=== PATIENT | female | born 1935 | race Two or more races ===

== ENCOUNTER → 2016-08-23 | Outpatient (CLI) | payer OTHER ==
[2016-08-23 09:18] LABS: Basophils # (auto) 0 uL; Basophils % (auto) 0.3 % (0.0-2.0); Eosinophils # (auto) 0.2 uL; Eosinophils % (auto) 3.3 % (0.0-7.0); Hematocrit 41.6 % (36.0-46.0); Hemoglobin 13.7 g/dL (12.2-16.2); Lymphocytes # (auto) 2.4 uL; Lymphocytes % (auto) 38.6 % (10.0-50.0); Mean Corpuscular Hemoglobin 30.1 pg (28.0-32.0); Mean Corpuscular Volume 91.1 fL (80.0-100.0); Mean Platelet Volume 8.9 fL (7.4-10.4); Monocytes # (auto) 0.5 uL; Monocytes % (auto) 8.1 % (0.0-12.0); Neutrophils # (auto) 3.1 uL; Neutrophils % (auto) 49.7 % (37.0-80.0); Platelet Count (auto) 300 10^3/uL (140-450); Red Cell Distribution Width 13.5 % (11.6-16.0); White Blood Cell 6.3 10^3/uL (4.4-10.8)
[2016-08-23 09:56] LABS: Albumin 3.6 g/dL (3.4-5.0); Bilirubin, Total 0.5 mg/dL (0.2-1.0); Calcium 9.5 mg/dL (8.5-10.1); Potassium 4.3 mmol/L (3.5-5.1); Total Protein 7.5 g/dL (6.4-8.2)
[2016-08-23 09:59] LABS: INR 0.97 (0.9-1.15); Partial Thromboplastin Time 23.6 sec (22.64-33.71); Prothrombin Time 10.5 sec (9.37-12.3)
[2016-08-23 10:38] LABS: Urine Bilirubin Negative (Negative); Urine Blood Negative /uL (Negative); Urine Color Yellow (Yellow); Urine Glucose Normal (Normal); Urine Ketone Negative (Negative); Urine Mucus FEW (None Seen); Urine Nitrite Negative (Negative); Urine RBC 2 /hpf (0 - 4); Urine Squamous Epithelial Cell FEW /hpf (<5); Urine Urobilinogen Normal (Negative)
== END | disposition home or self-care (01) ==
LOC: LAB 08:08
DX: H25.12 Age-related nuclear cataract, left eye (principal)
CPT/HCPCS: 36415; 80053; 81001; 85025; 85610; 85730

== ENCOUNTER → 2016-09-26 | Outpatient (CLI) | payer OTHER ==
[2016-09-26 08:08] LABS: Basophils # (auto) 0 uL; Basophils % (auto) 0.4 % (0.0-2.0); Eosinophils # (auto) 0.2 uL; Eosinophils % (auto) 3.6 % (0.0-7.0); Hematocrit 41.4 % (36.0-46.0); Hemoglobin 13.9 g/dL (12.2-16.2); Lymphocytes # (auto) 2.3 uL; Lymphocytes % (auto) 36.4 % (10.0-50.0); Mean Corpuscular Hemoglobin 30.6 pg (28.0-32.0); Mean Corpuscular Hgb Conc. 33.6 g/dL (32.0-36.0); Mean Corpuscular Volume 91.1 fL (80.0-100.0); Mean Platelet Volume 8.2 fL (7.4-10.4); Monocytes # (auto) 0.4 uL; Monocytes % (auto) 6.3 % (0.0-12.0); Neutrophils # (auto) 3.3 uL; Neutrophils % (auto) 53.3 % (37.0-80.0); Platelet Count (auto) 291 10^3/uL (140-450); Urine Bilirubin Negative (Negative); Urine Blood Negative /uL (Negative); Urine Color Yellow (Yellow); Urine Glucose Normal (Normal); Urine Ketone Negative (Negative); Urine Nitrite Negative (Negative); Urine Urobilinogen Normal (Negative); Urine pH 6.5 (5.0-8.0); White Blood Cell 6.2 10^3/uL (4.4-10.8)
[2016-09-26 08:23] LABS: INR 0.94 (0.9-1.15); Partial Thromboplastin Time 23.9 sec (22.64-33.71); Prothrombin Time 10.2 sec (9.37-12.3)
[2016-09-26 08:33] LABS: Albumin 3.6 g/dL (3.4-5.0); BUN/Creatinine Ratio 17.3; Bilirubin, Total 0.4 mg/dL (0.2-1.0); Calcium 8.7 mg/dL (8.5-10.1); Potassium 4.2 mmol/L (3.5-5.1); Total Protein 7.5 g/dL (6.4-8.2)
== END | disposition home or self-care (01) ==
LOC: LAB 07:30
DX: H26.9 Unspecified cataract (principal)
CPT/HCPCS: 36415; 80053; 81003; 85025; 85610; 85730

== ENCOUNTER 2022-09-25 09:10 | Emergency (ER) | payer OTHER ==
[~2022-09-25] VITALS: Ht 157.5 cm; Wt 61.8 kg
[2022-09-25 11:21] VITALS: BP 150/100
[2022-09-25] MEDS ORDERED: LACTULOSE 20Gm/30ML SOLN PO ONE (11:30)
[2022-09-25] MEDS ORDERED: MAGN400S25 PO (12:10)
[2022-09-25] MEDS ORDERED: SODIENE35 RE (12:10)
[2022-09-25] MEDS ORDERED: FLEET ENEMA(ADULT) 135 ML PR ONE (12:15)
== END 2022-09-25 13:17 | disposition home or self-care (01) ==
LOC: ER 09:10
DX: K59.00 Constipation, unspecified (principal)
CPT/HCPCS: 74018

== ENCOUNTER 2022-09-26 13:59 | Inpatient (IN) | payer OTHER, MEDICAID ==
[~2022-09-26] VITALS: Ht 157.5 cm; Wt 58.5 kg
[~2022-09-26 13:59] MED LIST: MAGN400S25 PO; SODIENE35 RE
[2022-09-26] MEDS ORDERED: SODIUM CHLORIDE 0.9% 500 ML IV ONE (16:00)
[2022-09-26 16:38] LABS: Albumin 3.8 g/dL (3.4-5.0); Calcium 9.5 mg/dL (8.5-10.1); Potassium 4.2 mmol/L (3.5-5.1)
[2022-09-26 16:42] LABS: BUN/Creatinine Ratio 29.4 (10.0-20.0); Bilirubin, Total 0.8 mg/dL (0.2-1.0); Total Protein 8.1 g/dL (6.4-8.2)
[2022-09-26 17:10] LABS: Basophils # (auto) 0 10 ^3/uL (0-0.2); Basophils % (auto) 0.1 % (0.0-2.0); Eosinophils # (auto) 0 10 ^3/uL (0-0.8); Hematocrit 46.4 % (36.0-46.0); Hemoglobin 15.6 g/dL (12.2-16.2); Lymphocytes # (auto) 0.8 10 ^3/uL (0.4-5.4); Lymphocytes % (auto) 8.9 % (10.0-50.0); Mean Corpuscular Hemoglobin 30.1 pg (28.0-32.0); Mean Corpuscular Hgb Conc. 33.5 g/dL (32.0-36.0); Mean Corpuscular Volume 89.8 fL (80.0-100.0); Monocytes # (auto) 0.4 10 ^3/uL (0-1.3); Monocytes % (auto) 4.9 % (0.0-12.0); Neutrophils # (auto) 7.5 10 ^3/uL (1.6-8.6); Neutrophils % (auto) 86.1 % (37.0-80.0); Nucleated Red Blood Cells % 0.1 %; Red Blood Cells 5.17 10^6/uL (4.0-5.20); White Blood Cell 8.7 10^3/uL (4.4-10.8)
[2022-09-26 17:33] LABS: Urine Bacteria FEW /hpf (None Seen); Urine Blood Negative /uL (Negative); Urine Mucus FEW (None Seen); Urine Specific Gravity 1.035 (1.001-1.035); Urine WBC 26 /hpf (0 - 5)
[2022-09-26] MEDS ORDERED: cefTRIAXone 1GM/50ML D5W 50 ML IV ONE (18:30)
[2022-09-26] MEDS ORDERED: ONDANSETRON HCL 4 MG/2 ML VIAL IV PRN (21:15)
[2022-09-26] MEDS: SODIUM CHLORIDE 0.9% 1,000 ML IV SCH (21:15)
[2022-09-26] MEDS ORDERED: MORPHINE SULFATE INJ 2 MG/ml SYRG IV PRN (21:15)
[2022-09-26 21:32] LABS: INR 0.98 (0.9-1.15); Partial Thromboplastin Time 25.1 sec (24.6-33.4)
[2022-09-27 05:53] LABS: Basophils # (auto) 0 10 ^3/uL (0-0.2); Eosinophils # (auto) 0 10 ^3/uL (0-0.8); Hematocrit 40.9 % (36.0-46.0); Hemoglobin 13.9 g/dL (12.2-16.2); Lymphocytes % (auto) 15.5 % (10.0-50.0); Mean Corpuscular Hemoglobin 30.5 pg (28.0-32.0); Mean Corpuscular Hgb Conc. 33.9 g/dL (32.0-36.0); Mean Corpuscular Volume 89.9 fL (80.0-100.0); Monocytes # (auto) 0.6 10 ^3/uL (0-1.3); Monocytes % (auto) 10.1 % (0.0-12.0); Neutrophils # (auto) 4.7 10 ^3/uL (1.6-8.6); Neutrophils % (auto) 74.4 % (37.0-80.0); Nucleated Red Blood Cells % 0.1 %; Red Blood Cells 4.55 10^6/uL (4.0-5.20); Red Cell Distribution Width 14.1 % (11.8-14.3); White Blood Cell 6.3 10^3/uL (4.4-10.8)
[2022-09-27 06:05] LABS: Albumin 3.3 g/dL (3.4-5.0); Calcium 8.7 mg/dL (8.5-10.1); Potassium 3.6 mmol/L (3.5-5.1)
[2022-09-27 06:09] LABS: BUN/Creatinine Ratio 43.8 (10.0-20.0); Bilirubin, Total 0.7 mg/dL (0.2-1.0); Total Protein 6.6 g/dL (6.4-8.2)
[2022-09-27] MEDS ORDERED: cefTRIAXone 1GM/50ML D5W 50 ML IV SCH (09:00)
[2022-09-27] MEDS ORDERED: GASTROGRAFIN 120 ML SOL ONE (09:20)
[2022-09-27] MEDS: PANTOPRAZOLE 40 MG/10 ML VIAL INJ IV SCH (12:35)
[2022-09-27] MEDS: SODIUM CHLORIDE 0.9% 1,000 ML IV SCH ×2 (12:52→22:15)
[2022-09-27 13:00] VITALS: BP 154/84
[2022-09-27 17:00] VITALS: BP 162/89
[2022-09-27] MEDS: PIPERACILLIN-TAZOB 3.375GM 100 ML IV SCH (21:43)
[2022-09-27 22:00] VITALS: BP 142/84
[2022-09-28] VITALS (36 sets, daily range): BP systolic 62–175; BP diastolic 36–97
[2022-09-28] MEDS: PIPERACILLIN-TAZOB 3.375GM 100 ML IV SCH ×3 (05:31→21:45)
[2022-09-28 06:31] LABS: Basophils # (auto) 0 10 ^3/uL (0-0.2); Basophils % (auto) 0.1 % (0.0-2.0); Eosinophils # (auto) 0 10 ^3/uL (0-0.8); Hematocrit 40.7 % (36.0-46.0); Hemoglobin 13.8 g/dL (12.2-16.2); Lymphocytes % (auto) 14.3 % (10.0-50.0); Mean Corpuscular Hemoglobin 30.6 pg (28.0-32.0); Mean Corpuscular Hgb Conc. 33.8 g/dL (32.0-36.0); Mean Corpuscular Volume 90.5 fL (80.0-100.0); Monocytes # (auto) 0.7 10 ^3/uL (0-1.3); Monocytes % (auto) 9.5 % (0.0-12.0); Neutrophils # (auto) 5.5 10 ^3/uL (1.6-8.6); Neutrophils % (auto) 76.1 % (37.0-80.0); Nucleated Red Blood Cells % 0.2 %; Red Cell Distribution Width 13.7 % (11.8-14.3); White Blood Cell 7.2 10^3/uL (4.4-10.8)
[2022-09-28 07:03] LABS: BUN/Creatinine Ratio 45.3 (10.0-20.0); Calcium 9.3 mg/dL (8.5-10.1); Potassium 4.2 mmol/L (3.5-5.1)
[2022-09-28 07:12] LABS: Bilirubin, Total 0.7 mg/dL (0.2-1.0); Total Protein 6.1 g/dL (6.4-8.2)
[2022-09-28] MEDS: PANTOPRAZOLE 40 MG/10 ML VIAL INJ IV SCH (10:41)
[2022-09-28] MEDS: SODIUM CHLORIDE 0.9% 1,000 ML IV SCH (10:45)
[2022-09-28] MEDS ORDERED: ceFAZolin 1GM/50ML 50 ML IV ONE (13:18)
[2022-09-28] MEDS ORDERED: METRONIDAZOLE 500 MG/100 ML IV ONE (13:19)
[2022-09-28] MEDS ORDERED: HYDROmorphone HCL 2 MG/ML VL/or syr ONE (13:34)
[2022-09-28] MEDS ORDERED: MIDAZOLAM HCL 2MG/2ML 2ml VIAL (1mg/ml) ONE ×2 (13:36→14:12)
[2022-09-28] MEDS ORDERED: fentaNYL CITRATE 100 MCG/2 ML VL ONE ×3 (13:36→14:15)
[2022-09-28] MEDS ORDERED: DexAMETHasone SOD PHOS 10MG/1ML VIAL INJ ONE (13:57)
[2022-09-28] MEDS ORDERED: ETOMIDATE (2MG/ML) 20ML VIAL IV ONE (13:59)
[2022-09-28] MEDS ORDERED: CALCIUM CHL(10%) 100MG/ML 10ML VIAL IV ONE (14:03)
[2022-09-28] MEDS ORDERED: NOREPINEPHRINE 8 MG/250ML KIT 250 ML IV ONE (14:22)
[2022-09-28] MEDS ORDERED: BACITRACIN TOP OINT 1 UD PKG TOP ONE (14:41)
[2022-09-28] MEDS ORDERED: POVIDONE IODINE 10 % TOPICAL OINT 30GM TOP ONE (14:42)
[2022-09-28] MEDS ORDERED: SODIUM CHLORIDE 0.9% 1,000 ML IV SCH (15:00)
[2022-09-28] MEDS: NOREPINEPHRINE 8 MG/250ML KIT 250 ML IV SCH ×2 (15:00→18:39)
[2022-09-28] MEDS: MIDAZOLAM DRIP 50 mg/50mL 50 ML IV SCH (15:00)
[2022-09-28] MEDS ORDERED: MIDAZOLAM DRIP 50 mg/50mL 50 ML IV ONE (15:28)
[2022-09-28] MEDS ORDERED: LIDOCAINE 1% (LOCAL ANESTH.) PF 5ml SDV ID ONE (18:30)
[2022-09-28] MEDS: D5W/SOD CHL 0.45%/KCL 20MEQ 1,000 ML IV SCH (18:42)
[2022-09-28] MEDS ORDERED: CLINIMIX PER PHARMACY 0 ML IV SCH (19:30)
[2022-09-28] MEDS: fentaNYL Drip 2500mCg/250mlNS 250 ML IV SCH (19:46)
[2022-09-28] MEDS: SODIUM CHLOR 0.9% PF (SALINE LOCK) 10ML VIAL/SYR IV SCH (21:46)
[2022-09-28] MEDS ORDERED: AMINO ACID INFUSION IN D10W 1,000 ML IV NR (22:00)
[2022-09-28] MEDS: ACCU-CHEK COMFORT CURVE STRIP VI SCH (23:33)
[2022-09-28] MEDS: InsuLIN REG 1unit/0.01ml Soln (100units/ml) SC SCH (23:49)
[2022-09-29] VITALS (99 sets, daily range): BP systolic 77–170; BP diastolic 42–145
[2022-09-29] MEDS ORDERED: DEXTROSE (50%) 50ML SYRG IV SCH
[2022-09-29] MEDS: D5W/SOD CHL 0.45%/KCL 20MEQ 1,000 ML IV SCH (02:55)
[2022-09-29 04:35] LABS: Basophils # (auto) 0 10 ^3/uL (0-0.2); Basophils % (auto) 0.1 % (0.0-2.0); Eosinophils # (auto) 0 10 ^3/uL (0-0.8); Hematocrit 38.7 % (36.0-46.0); Hemoglobin 13.2 g/dL (12.2-16.2); Lymphocytes # (auto) 0.7 10 ^3/uL (0.4-5.4); Lymphocytes % (auto) 7.2 % (10.0-50.0); Mean Corpuscular Hemoglobin 30.5 pg (28.0-32.0); Mean Corpuscular Volume 89.6 fL (80.0-100.0); Monocytes # (auto) 0.5 10 ^3/uL (0-1.3); Monocytes % (auto) 5.3 % (0.0-12.0); Neutrophils # (auto) 8.8 10 ^3/uL (1.6-8.6); Neutrophils % (auto) 87.4 % (37.0-80.0); Red Blood Cells 4.32 10^6/uL (4.0-5.20); Red Cell Distribution Width 13.7 % (11.8-14.3)
[2022-09-29 04:42] LABS: Albumin 2.3 g/dL (3.4-5.0); Calcium 7.9 mg/dL (8.5-10.1); Magnesium 2.2 mg/dL (1.6-2.6); Potassium 5.2 mmol/L (3.5-5.1)
[2022-09-29 04:46] LABS: BUN/Creatinine Ratio 31.4 (10.0-20.0); Bilirubin, Total 0.5 mg/dL (0.2-1.0); Phosphorus 1.8 mg/dL (2.5-4.90); Total Protein 4.9 g/dL (6.4-8.2)
[2022-09-29] MEDS: PIPERACILLIN-TAZOB 3.375GM 100 ML IV SCH ×3 (06:11→22:00)
[2022-09-29] MEDS: ACCU-CHEK COMFORT CURVE STRIP VI SCH ×3 (06:12→18:07)
[2022-09-29] MEDS: InsuLIN REG 1unit/0.01ml Soln (100units/ml) SC SCH ×3 (06:16→18:00)
[2022-09-29] MEDS ORDERED: SODIUM PHOSPHATES 24 MEQ in SODIUM CHL 0.9% 100 ML IV ONE (08:30)
[2022-09-29] MEDS ORDERED: D5W/SOD CHL 0.45% 1,000 ML IV ONE (08:30)
[2022-09-29] MEDS: SODIUM CHLOR 0.9% PF (SALINE LOCK) 10ML VIAL/SYR IV SCH ×2 (11:21→22:01)
[2022-09-29] MEDS: PANTOPRAZOLE 40 MG/10 ML VIAL INJ IV SCH (11:21)
[2022-09-29] MEDS ORDERED: FOLIC ACID 1 MG, MULTIPLE VITAMIN 10 ML, MAGNESIUM SULF SDV 50% 8 MEQ, THIAMINE INJ 100... INJ SCH ×5 (12:00)
[2022-09-29] MEDS: MIDAZOLAM DRIP 50 mg/50mL 50 ML IV SCH (15:00)
[2022-09-29] MEDS: METOCLOPRAMIDE HCL 5MG/ml INJ 2ml VIAL IV SCH ×2 (15:08→22:00)
[2022-09-29] MEDS ORDERED: ACETAMINOPHEN 325 MG RECT SUPP PR PRN (15:15)
[2022-09-29] MEDS: ACETAMINOPHEN 650 MG RECT SUPP PR PRN ×2 (15:36→23:23)
[2022-09-29] MEDS ORDERED: AMINO ACID INFUSION IN D10W 1,000 ML IV NR (16:45)
[2022-09-29] MEDS: fentaNYL Drip 2500mCg/250mlNS 250 ML IV SCH (17:30)
[2022-09-29] MEDS ORDERED: CLINIMIX PER PHARMACY IV NR (20:00)
[2022-09-29] MEDS ORDERED: AMINO ACID INFUSION IN D10W 2,000 ML IV NR (20:00)
[2022-09-30] VITALS (94 sets, daily range): BP systolic 90–280; BP diastolic 51–166
[2022-09-30 04:43] LABS: Basophils # (auto) 0 10 ^3/uL (0-0.2); Basophils % (auto) 0.1 % (0.0-2.0); Eosinophils # (auto) 0 10 ^3/uL (0-0.8); Eosinophils % (auto) 0.4 % (0.0-7.0); Hematocrit 33.7 % (36.0-46.0); Hemoglobin 11.4 g/dL (12.2-16.2); Lymphocytes # (auto) 0.9 10 ^3/uL (0.4-5.4); Lymphocytes % (auto) 9.9 % (10.0-50.0); Mean Corpuscular Hemoglobin 30.5 pg (28.0-32.0); Mean Corpuscular Hgb Conc. 33.8 g/dL (32.0-36.0); Mean Corpuscular Volume 90.3 fL (80.0-100.0); Monocytes # (auto) 0.4 10 ^3/uL (0-1.3); Monocytes % (auto) 5.1 % (0.0-12.0); Neutrophils # (auto) 7.3 10 ^3/uL (1.6-8.6); Neutrophils % (auto) 84.5 % (37.0-80.0); Nucleated Red Blood Cells % 0.1 %; Red Blood Cells 3.73 10^6/uL (4.0-5.20); Red Cell Distribution Width 13.9 % (11.8-14.3); White Blood Cell 8.7 10^3/uL (4.4-10.8)
[2022-09-30 04:56] LABS: Albumin 1.9 g/dL (3.4-5.0); Calcium 7.7 mg/dL (8.5-10.1); Magnesium 2.2 mg/dL (1.6-2.6); Potassium 3.4 mmol/L (3.5-5.1)
[2022-09-30 05:09] LABS: Bilirubin, Total 0.4 mg/dL (0.2-1.0); Phosphorus 1.5 mg/dL (2.5-4.90); Total Protein 4.7 g/dL (6.4-8.2)
[2022-09-30] MEDS: InsuLIN REG 1unit/0.01ml Soln (100units/ml) SC SCH ×4 (06:00→18:00)
[2022-09-30] MEDS: ACCU-CHEK COMFORT CURVE STRIP VI SCH ×4 (06:09→18:00)
[2022-09-30] MEDS: PIPERACILLIN-TAZOB 3.375GM 100 ML IV SCH ×3 (06:10→21:57)
[2022-09-30] MEDS: METOCLOPRAMIDE HCL 5MG/ml INJ 2ml VIAL IV SCH ×3 (09:24→21:56)
[2022-09-30] MEDS ORDERED: POTASSIUM PHOSPHATE 44 MEQ in D5W 5% 250 ML IV ONE (10:00)
[2022-09-30] MEDS: SODIUM CHLOR 0.9% PF (SALINE LOCK) 10ML VIAL/SYR IV SCH ×2 (10:01→21:56)
[2022-09-30] MEDS: PANTOPRAZOLE 40 MG/10 ML VIAL INJ IV SCH (10:01)
[2022-09-30] MEDS: D5W/SOD CHL 0.45% 1,000 ML IV SCH ×2 (11:10→19:46)
[2022-09-30] MEDS: ACETAMINOPHEN 650 mg PER 20.3 mL UD PO PRN (13:51)
[2022-09-30] MEDS: NOREPINEPHRINE 8 MG/250ML KIT 250 ML IV SCH (15:00)
[2022-09-30] MEDS: MIDAZOLAM DRIP 50 mg/50mL 50 ML IV SCH (15:00)
[2022-09-30] MEDS: fentaNYL Drip 2500mCg/250mlNS 250 ML IV SCH (17:30)
[2022-09-30] MEDS: AMINO ACID INFUSION IN D10W 1,000 ML IV NR (20:24)
[2022-09-30] MEDS: MINERAL OIL 30 ML XX SCH (21:57)
[2022-10-01] VITALS (68 sets, daily range): BP systolic 97–177; BP diastolic 57–114
[2022-10-01] MEDS: ACCU-CHEK COMFORT CURVE STRIP VI SCH ×5 (00:16→23:51)
[2022-10-01] MEDS: InsuLIN REG 1unit/0.01ml Soln (100units/ml) SC SCH ×5 (00:19→23:52)
[2022-10-01] MEDS: D5W/SOD CHL 0.45% 1,000 ML IV SCH ×3 (02:58→19:58)
[2022-10-01 04:17] LABS: Albumin 1.9 g/dL (3.4-5.0); Calcium 7.7 mg/dL (8.5-10.1)
[2022-10-01 04:20] LABS: BUN/Creatinine Ratio 18.2 (10.0-20.0); Magnesium 1.9 mg/dL (1.6-2.6)
[2022-10-01 04:38] LABS: Potassium 3.8 mmol/L (3.5-5.1)
[2022-10-01 04:39] LABS: Bilirubin, Total 0.4 mg/dL (0.2-1.0); Phosphorus 1.9 mg/dL (2.5-4.90); Total Protein 5.1 g/dL (6.4-8.2)
[2022-10-01] MEDS: PIPERACILLIN-TAZOB 3.375GM 100 ML IV SCH ×3 (06:12→22:10)
[2022-10-01] MEDS: METOCLOPRAMIDE HCL 5MG/ml INJ 2ml VIAL IV SCH ×3 (06:12→22:09)
[2022-10-01] MEDS: PANTOPRAZOLE 40 MG/10 ML VIAL INJ IV SCH (10:36)
[2022-10-01] MEDS: SODIUM CHLOR 0.9% PF (SALINE LOCK) 10ML VIAL/SYR IV SCH ×2 (10:40→22:10)
[2022-10-01] MEDS ORDERED: POTASSIUM PHOSPHATE 44 MEQ in D5W 5% 250 ML IV ONE (11:30)
[2022-10-01] MEDS: MINERAL OIL 30 ML XX SCH ×2 (12:07→22:11)
[2022-10-01] MEDS: NOREPINEPHRINE 8 MG/250ML KIT 250 ML IV SCH (15:00)
[2022-10-01] MEDS: MIDAZOLAM DRIP 50 mg/50mL 50 ML IV SCH (15:00)
[2022-10-01] MEDS: fentaNYL Drip 2500mCg/250mlNS 250 ML IV SCH (17:30)
[2022-10-01] MEDS: AMINO ACID INFUSION IN D10W 1,000 ML IV NR (19:58)
[2022-10-02] VITALS (17 sets, daily range): BP systolic 123–155; BP diastolic 71–94
[2022-10-02] MEDS: D5W/SOD CHL 0.45% 1,000 ML IV SCH ×3 (03:00→15:44)
[2022-10-02 04:18] LABS: Basophils # (auto) 0 10 ^3/uL (0-0.2); Basophils % (auto) 0.2 % (0.0-2.0); Eosinophils # (auto) 0.2 10 ^3/uL (0-0.8); Eosinophils % (auto) 1.9 % (0.0-7.0); Hematocrit 37.1 % (36.0-46.0); Hemoglobin 12.4 g/dL (12.2-16.2); Lymphocytes # (auto) 1.2 10 ^3/uL (0.4-5.4); Lymphocytes % (auto) 12.5 % (10.0-50.0); Mean Corpuscular Hemoglobin 30.2 pg (28.0-32.0); Mean Corpuscular Hgb Conc. 33.5 g/dL (32.0-36.0); Mean Corpuscular Volume 90.3 fL (80.0-100.0); Monocytes # (auto) 0.7 10 ^3/uL (0-1.3); Monocytes % (auto) 7.2 % (0.0-12.0); Neutrophils # (auto) 7.3 10 ^3/uL (1.6-8.6); Neutrophils % (auto) 78.2 % (37.0-80.0); Nucleated Red Blood Cells % 0.1 %; Red Blood Cells 4.11 10^6/uL (4.0-5.20); Red Cell Distribution Width 13.8 % (11.8-14.3); White Blood Cell 9.4 10^3/uL (4.4-10.8)
[2022-10-02 04:31] LABS: Calcium 8.2 mg/dL (8.5-10.1); Magnesium 1.9 mg/dL (1.6-2.6); Potassium 3.4 mmol/L (3.5-5.1)
[2022-10-02 04:33] LABS: BUN/Creatinine Ratio 19.1 (10.0-20.0); Phosphorus 2.2 mg/dL (2.5-4.90)
[2022-10-02 04:39] LABS: Bilirubin, Total 0.6 mg/dL (0.2-1.0); Total Protein 5.5 g/dL (6.4-8.2)
[2022-10-02] MEDS: InsuLIN REG 1unit/0.01ml Soln (100units/ml) SC SCH ×3 (06:00→18:00)
[2022-10-02] MEDS: METOCLOPRAMIDE HCL 5MG/ml INJ 2ml VIAL IV SCH ×4 (06:10→21:23)
[2022-10-02] MEDS: PIPERACILLIN-TAZOB 3.375GM 100 ML IV SCH ×3 (06:10→21:23)
[2022-10-02] MEDS: ACCU-CHEK COMFORT CURVE STRIP VI SCH ×3 (06:11→18:14)
[2022-10-02] MEDS: PANTOPRAZOLE 40 MG/10 ML VIAL INJ IV SCH (07:59)
[2022-10-02] MEDS: SODIUM CHLOR 0.9% PF (SALINE LOCK) 10ML VIAL/SYR IV SCH ×2 (08:02→21:23)
[2022-10-02] MEDS: MINERAL OIL 30 ML XX SCH ×2 (08:02→21:27)
[2022-10-02] MEDS ORDERED: POTASSIUM PHOSPHATE 44 MEQ in D5W 5% 250 ML IV ONE (14:00)
[2022-10-02] MEDS ORDERED: POTASSIUM PHOSPHATE 22 MEQ in SODIUM CHL 0.9% 100 ML IV ONE (14:30)
[2022-10-02] MEDS: AMINO ACID INFUSION IN D10W 1,000 ML IV NR ×2 (19:57→20:10)
[2022-10-03] MEDS: ACCU-CHEK COMFORT CURVE STRIP VI SCH ×5 (00:34→23:19)
[2022-10-03] MEDS: D5W/SOD CHL 0.45% 1,000 ML IV SCH ×3 (03:00→21:11)
[2022-10-03 05:00] VITALS: BP 139/74
[2022-10-03] MEDS: PIPERACILLIN-TAZOB 3.375GM 100 ML IV SCH ×3 (05:37→21:28)
[2022-10-03] MEDS: METOCLOPRAMIDE HCL 5MG/ml INJ 2ml VIAL IV SCH ×3 (05:38→21:26)
[2022-10-03] MEDS: InsuLIN REG 1unit/0.01ml Soln (100units/ml) SC SCH ×4 (05:43→17:31)
[2022-10-03 06:12] LABS: Potassium 3.7 mmol/L (3.5-5.1)
[2022-10-03 06:18] LABS: Albumin 2.1 g/dL (3.4-5.0); Bilirubin, Total 0.7 mg/dL (0.2-1.0); Calcium 8.2 mg/dL (8.5-10.1); Magnesium 2.2 mg/dL (1.6-2.6); Phosphorus 2.9 mg/dL (2.5-4.90); Total Protein 5.6 g/dL (6.4-8.2)
[2022-10-03 09:00] VITALS: BP 140/79
[2022-10-03] MEDS: PANTOPRAZOLE 40 MG/10 ML VIAL INJ IV SCH (09:39)
[2022-10-03] MEDS: SODIUM CHLOR 0.9% PF (SALINE LOCK) 10ML VIAL/SYR IV SCH ×2 (09:40→21:44)
[2022-10-03] MEDS: MINERAL OIL 30 ML XX SCH ×2 (09:40→23:00)
[2022-10-03 13:00] VITALS: BP 157/90
[2022-10-03 17:00] VITALS: BP 147/82
[2022-10-03] MEDS ORDERED: POTASSIUM PHOSPHATE 22 MEQ in SODIUM CHL 0.9% 100 ML IV ONE (17:00)
[2022-10-03] MEDS: AMINO ACID INFUSION IN D10W 1,000 ML IV NR ×2 (19:49→21:12)
[2022-10-03 22:00] VITALS: BP 143/85
[2022-10-04] MEDS: D5W/SOD CHL 0.45% 1,000 ML IV SCH ×3 (03:00→18:05)
[2022-10-04 05:00] VITALS: BP 137/77
[2022-10-04] MEDS: METOCLOPRAMIDE HCL 5MG/ml INJ 2ml VIAL IV SCH ×3 (05:42→22:16)
[2022-10-04] MEDS: PIPERACILLIN-TAZOB 3.375GM 100 ML IV SCH ×3 (05:42→22:06)
[2022-10-04] MEDS: ACCU-CHEK COMFORT CURVE STRIP VI SCH ×4 (05:52→23:24)
[2022-10-04] MEDS: InsuLIN REG 1unit/0.01ml Soln (100units/ml) SC SCH ×5 (05:52→23:24)
[2022-10-04 07:36] LABS: Albumin 1.9 g/dL (3.4-5.0); BUN/Creatinine Ratio 26.5 (10.0-20.0); Calcium 8.1 mg/dL (8.5-10.1); Magnesium 2.3 mg/dL (1.6-2.6); Phosphorus 2.5 mg/dL (2.5-4.90); Potassium 3.9 mmol/L (3.5-5.1)
[2022-10-04 09:00] VITALS: BP 133/79
[2022-10-04] MEDS: PANTOPRAZOLE 40 MG/10 ML VIAL INJ IV SCH (10:21)
[2022-10-04] MEDS: SODIUM CHLOR 0.9% PF (SALINE LOCK) 10ML VIAL/SYR IV SCH ×2 (10:22→22:42)
[2022-10-04] MEDS: MINERAL OIL 30 ML XX SCH ×2 (10:22→22:19)
[2022-10-04 13:00] VITALS: BP 145/75
[2022-10-04 16:59] VITALS: BP 130/73
[2022-10-04] MEDS: AMINO ACID INFUSION IN D10W 1,000 ML IV NR (20:19)
[2022-10-04 22:00] VITALS: BP 124/65
[2022-10-05] MEDS: D5W/SOD CHL 0.45% 1,000 ML IV SCH ×3 (02:51→22:50)
[2022-10-05 05:00] VITALS: BP 138/76
[2022-10-05] MEDS: METOCLOPRAMIDE HCL 5MG/ml INJ 2ml VIAL IV SCH ×3 (05:17→21:38)
[2022-10-05] MEDS: ACCU-CHEK COMFORT CURVE STRIP VI SCH ×4 (05:26→23:39)
[2022-10-05] MEDS: PIPERACILLIN-TAZOB 3.375GM 100 ML IV SCH ×3 (05:31→21:39)
[2022-10-05] MEDS: InsuLIN REG 1unit/0.01ml Soln (100units/ml) SC SCH ×4 (05:44→23:38)
[2022-10-05 07:13] LABS: Albumin 1.9 g/dL (3.4-5.0); Calcium 8.3 mg/dL (8.5-10.1); Magnesium 2.2 mg/dL (1.6-2.6); Potassium 3.5 mmol/L (3.5-5.1)
[2022-10-05 07:15] LABS: BUN/Creatinine Ratio 19.3 (10.0-20.0)
[2022-10-05 07:18] LABS: Bilirubin, Total 0.7 mg/dL (0.2-1.0); Phosphorus 2.7 mg/dL (2.5-4.90); Total Protein 5.3 g/dL (6.4-8.2)
[2022-10-05 09:00] VITALS: BP 130/74
[2022-10-05] MEDS: PANTOPRAZOLE 40 MG/10 ML VIAL INJ IV SCH (09:47)
[2022-10-05] MEDS: SODIUM CHLOR 0.9% PF (SALINE LOCK) 10ML VIAL/SYR IV SCH ×2 (09:48→21:39)
[2022-10-05] MEDS: MINERAL OIL 30 ML XX SCH ×2 (09:48→21:40)
[2022-10-05 12:46] VITALS: BP 135/82
[2022-10-05 17:00] VITALS: BP 133/78
[2022-10-05] MEDS: AMINO ACID INFUSION IN D10W 1,000 ML IV NR (20:07)
[2022-10-05 22:00] VITALS: BP 132/82
[2022-10-06] MEDS: D5W/SOD CHL 0.45% 1,000 ML IV SCH ×3 (03:00→18:32)
[2022-10-06 05:00] VITALS: BP 98/68
[2022-10-06] MEDS: PIPERACILLIN-TAZOB 3.375GM 100 ML IV SCH ×3 (05:03→21:24)
[2022-10-06] MEDS: METOCLOPRAMIDE HCL 5MG/ml INJ 2ml VIAL IV SCH ×3 (05:03→21:24)
[2022-10-06] MEDS: InsuLIN REG 1unit/0.01ml Soln (100units/ml) SC SCH ×4 (05:21→23:44)
[2022-10-06] MEDS: ACCU-CHEK COMFORT CURVE STRIP VI SCH ×4 (05:22→23:41)
[2022-10-06 06:30] LABS: Potassium 3.4 mmol/L (3.5-5.1)
[2022-10-06 06:38] LABS: BUN/Creatinine Ratio 15.4 (10.0-20.0); Calcium 7.9 mg/dL (8.5-10.1); Magnesium 2.2 mg/dL (1.6-2.6); Phosphorus 2.5 mg/dL (2.5-4.90)
[2022-10-06 09:00] VITALS: BP 105/68
[2022-10-06] MEDS ORDERED: POTASSIUM PHOSPHATE 22 MEQ in SODIUM CHL 0.9% 100 ML IV ONE (11:00)
[2022-10-06] MEDS: SODIUM CHLOR 0.9% PF (SALINE LOCK) 10ML VIAL/SYR IV SCH ×2 (11:41→21:24)
[2022-10-06] MEDS: MINERAL OIL 30 ML XX SCH ×2 (11:42→21:24)
[2022-10-06 12:46] VITALS: BP 116/79
[2022-10-06 17:00] VITALS: BP 117/70
[2022-10-06] MEDS: AMINO ACID INFUSION IN D10W 1,000 ML IV NR (19:45)
[2022-10-06 22:22] VITALS: BP 134/69
[2022-10-07] MEDS: D5W/SOD CHL 0.45% 1,000 ML IV SCH ×3 (04:01→21:43)
[2022-10-07 05:00] VITALS: BP 138/74
[2022-10-07] MEDS: PIPERACILLIN-TAZOB 3.375GM 100 ML IV SCH ×3 (05:23→21:41)
[2022-10-07] MEDS: METOCLOPRAMIDE HCL 5MG/ml INJ 2ml VIAL IV SCH ×3 (05:23→21:42)
[2022-10-07] MEDS: ACCU-CHEK COMFORT CURVE STRIP VI SCH ×4 (05:24→23:56)
[2022-10-07] MEDS: InsuLIN REG 1unit/0.01ml Soln (100units/ml) SC SCH ×4 (05:24→23:56)
[2022-10-07 06:48] LABS: Albumin 2.1 g/dL (3.4-5.0); Calcium 7.6 mg/dL (8.5-10.1); Magnesium 2.1 mg/dL (1.6-2.6); Potassium 3.5 mmol/L (3.5-5.1)
[2022-10-07 06:53] LABS: BUN/Creatinine Ratio 13.2 (10.0-20.0); Bilirubin, Total 0.5 mg/dL (0.2-1.0); Phosphorus 2.5 mg/dL (2.5-4.90); Total Protein 5.4 g/dL (6.4-8.2)
[2022-10-07] MEDS ORDERED: POTASSIUM PHOSPHATE 22 MEQ in SODIUM CHL 0.9% 100 ML IV ONE (11:00)
[2022-10-07] MEDS: MINERAL OIL 30 ML XX SCH ×2 (12:21→21:43)
[2022-10-07] MEDS: SODIUM CHLOR 0.9% PF (SALINE LOCK) 10ML VIAL/SYR IV SCH ×2 (12:23→21:42)
[2022-10-07] MEDS: AMINO ACID INFUSION IN D10W 1,000 ML IV NR (19:32)
[2022-10-07 22:00] VITALS: BP 129/75
[2022-10-08] MEDS: D5W/SOD CHL 0.45% 1,000 ML IV SCH ×4 (04:07→21:05)
[2022-10-08 05:00] VITALS: BP 150/78
[2022-10-08] MEDS: PIPERACILLIN-TAZOB 3.375GM 100 ML IV SCH ×3 (05:07→21:04)
[2022-10-08] MEDS: METOCLOPRAMIDE HCL 5MG/ml INJ 2ml VIAL IV SCH ×3 (05:07→22:14)
[2022-10-08] MEDS: ACCU-CHEK COMFORT CURVE STRIP VI SCH ×4 (05:08→22:37)
[2022-10-08] MEDS: InsuLIN REG 1unit/0.01ml Soln (100units/ml) SC SCH ×4 (05:08→22:37)
[2022-10-08 06:00] LABS: Potassium 3.1 mmol/L (3.5-5.1)
[2022-10-08 06:13] LABS: Albumin 2.1 g/dL (3.4-5.0); BUN/Creatinine Ratio 12.5 (10.0-20.0); Calcium 7.9 mg/dL (8.5-10.1); Magnesium 2.1 mg/dL (1.6-2.6); Phosphorus 2.4 mg/dL (2.5-4.90)
[2022-10-08] MEDS ORDERED: POTASSIUM CHL 20 Meq TABLET PO ONE (07:00)
[2022-10-08 09:00] VITALS: BP 133/73
[2022-10-08] MEDS ORDERED: POTASSIUM CHL 20MEQ/100ML 100 ML IV ONE (10:30)
[2022-10-08] MEDS: SODIUM CHLOR 0.9% PF (SALINE LOCK) 10ML VIAL/SYR IV SCH ×2 (11:12→21:04)
[2022-10-08] MEDS: MINERAL OIL 30 ML XX SCH ×2 (11:13→22:14)
[2022-10-08] MEDS ORDERED: POTASSIUM PHOSPHATE 22 MEQ in SODIUM CHL 0.9% 100 ML IV ONE (12:30)
[2022-10-08 13:00] VITALS: BP 140/78
[2022-10-08 16:55] VITALS: BP 141/91
[2022-10-08] MEDS: AMINO ACID INFUSION IN D10W 1,000 ML IV NR (21:04)
[2022-10-08 22:00] VITALS: BP 130/76
[2022-10-09] MEDS: ACETAMINOPHEN 650 mg PER 20.3 mL UD PO PRN (02:38)
[2022-10-09 05:00] VITALS: BP 124/73
[2022-10-09] MEDS: METOCLOPRAMIDE HCL 5MG/ml INJ 2ml VIAL IV SCH ×3 (05:18→22:28)
[2022-10-09] MEDS: PIPERACILLIN-TAZOB 3.375GM 100 ML IV SCH ×2 (05:18→15:17)
[2022-10-09] MEDS: D5W/SOD CHL 0.45% 1,000 ML IV SCH ×3 (05:19→19:00)
[2022-10-09] MEDS: InsuLIN REG 1unit/0.01ml Soln (100units/ml) SC SCH ×4 (05:19→22:53)
[2022-10-09] MEDS: ACCU-CHEK COMFORT CURVE STRIP VI SCH ×4 (05:19→22:31)
[2022-10-09 05:34] LABS: Albumin 1.9 g/dL (3.4-5.0); BUN/Creatinine Ratio 18.9 (10.0-20.0); Calcium 8.3 mg/dL (8.5-10.1); Magnesium 1.9 mg/dL (1.6-2.6); Potassium 3.5 mmol/L (3.5-5.1)
[2022-10-09 05:37] LABS: Bilirubin, Total 0.4 mg/dL (0.2-1.0); Phosphorus 2.8 mg/dL (2.5-4.90); Total Protein 5.3 g/dL (6.4-8.2)
[2022-10-09 09:07] VITALS: BP 104/67
[2022-10-09] MEDS: SODIUM CHLOR 0.9% PF (SALINE LOCK) 10ML VIAL/SYR IV SCH ×2 (11:17→22:31)
[2022-10-09] MEDS: MINERAL OIL 30 ML XX SCH ×2 (11:18→22:31)
[2022-10-09 12:32] VITALS: BP 142/76
[2022-10-09 16:33] VITALS: BP 144/83
[2022-10-09] MEDS: AMINO ACID INFUSION IN D10W 1,000 ML IV NR ×2 (18:54→20:00)
[2022-10-09 22:00] VITALS: BP 151/83
[2022-10-10] MEDS: D5W/SOD CHL 0.45% 1,000 ML IV SCH ×3 (02:15→19:00)
[2022-10-10 05:00] VITALS: BP 136/77
[2022-10-10] MEDS: InsuLIN REG 1unit/0.01ml Soln (100units/ml) SC SCH ×2 (05:38→12:00)
[2022-10-10] MEDS: METOCLOPRAMIDE HCL 5MG/ml INJ 2ml VIAL IV SCH ×3 (05:38→21:25)
[2022-10-10] MEDS: ACCU-CHEK COMFORT CURVE STRIP VI SCH ×2 (05:38→12:00)
[2022-10-10 05:42] LABS: Basophils # (auto) 0 10 ^3/uL (0-0.2); Basophils % (auto) 0.4 % (0.0-2.0); Eosinophils # (auto) 0.3 10 ^3/uL (0-0.8); Eosinophils % (auto) 3.3 % (0.0-7.0); Hematocrit 31.8 % (36.0-46.0); Hemoglobin 10.9 g/dL (12.2-16.2); Lymphocytes % (auto) 11.5 % (10.0-50.0); Mean Corpuscular Hemoglobin 30.9 pg (28.0-32.0); Mean Corpuscular Hgb Conc. 34.3 g/dL (32.0-36.0); Mean Corpuscular Volume 90.1 fL (80.0-100.0); Monocytes # (auto) 0.5 10 ^3/uL (0-1.3); Monocytes % (auto) 5.9 % (0.0-12.0); Neutrophils # (auto) 7.1 10 ^3/uL (1.6-8.6); Neutrophils % (auto) 78.9 % (37.0-80.0); Nucleated Red Blood Cells % 0.1 %; Red Blood Cells 3.52 10^6/uL (4.0-5.20); Red Cell Distribution Width 13.9 % (11.8-14.3)
[2022-10-10 06:00] LABS: Potassium 3.4 mmol/L (3.5-5.1)
[2022-10-10 06:03] LABS: BUN/Creatinine Ratio 14.5 (10.0-20.0); Bilirubin, Total 0.4 mg/dL (0.2-1.0); Phosphorus 2.7 mg/dL (2.5-4.90); Total Protein 5.5 g/dL (6.4-8.2)
[2022-10-10] MEDS: AMINO ACID INFUSION IN D10W 1,000 ML IV NR (08:01)
[2022-10-10 09:00] VITALS: BP 138/69
[2022-10-10] MEDS: SODIUM CHLOR 0.9% PF (SALINE LOCK) 10ML VIAL/SYR IV SCH ×2 (10:06→21:26)
[2022-10-10] MEDS: MINERAL OIL 30 ML XX SCH ×2 (10:06→21:26)
[2022-10-10] MEDS ORDERED: POTASSIUM EFFERVESENT TAB 25 MEQ PO ONE (11:45)
[2022-10-10 12:50] VITALS: BP 140/74
[2022-10-10 17:00] VITALS: BP 119/77
[2022-10-10 22:00] VITALS: BP 129/73
[2022-10-11] MEDS: D5W/SOD CHL 0.45% 1,000 ML IV SCH ×3 (03:00→14:56)
[2022-10-11 05:00] VITALS: BP 123/75
[2022-10-11] MEDS: METOCLOPRAMIDE HCL 5MG/ml INJ 2ml VIAL IV SCH ×3 (05:32→21:11)
[2022-10-11 09:00] VITALS: BP 120/71
[2022-10-11] MEDS: SODIUM CHLOR 0.9% PF (SALINE LOCK) 10ML VIAL/SYR IV SCH ×2 (09:26→21:12)
[2022-10-11] MEDS: MINERAL OIL 30 ML XX SCH ×2 (09:27→21:12)
[2022-10-11 13:00] VITALS: BP 132/79
[2022-10-11 17:24] VITALS: BP 133/74
[2022-10-11 22:00] VITALS: BP 139/82
[2022-10-12 05:00] VITALS: BP 129/75
[2022-10-12] MEDS: METOCLOPRAMIDE HCL 5MG/ml INJ 2ml VIAL IV SCH ×3 (05:45→21:22)
[2022-10-12 06:14] LABS: Basophils # (auto) 0.1 10 ^3/uL (0-0.2); Basophils % (auto) 0.8 % (0.0-2.0); Eosinophils # (auto) 0.2 10 ^3/uL (0-0.8); Eosinophils % (auto) 2.9 % (0.0-7.0); Hemoglobin 11.6 g/dL (12.2-16.2); Lymphocytes # (auto) 1.4 10 ^3/uL (0.4-5.4); Lymphocytes % (auto) 19.1 % (10.0-50.0); Mean Corpuscular Hemoglobin 30.8 pg (28.0-32.0); Mean Corpuscular Hgb Conc. 34.2 g/dL (32.0-36.0); Mean Corpuscular Volume 90.1 fL (80.0-100.0); Monocytes # (auto) 0.5 10 ^3/uL (0-1.3); Monocytes % (auto) 6.5 % (0.0-12.0); Neutrophils # (auto) 5.2 10 ^3/uL (1.6-8.6); Neutrophils % (auto) 70.7 % (37.0-80.0); Nucleated Red Blood Cells % 0.1 %; Red Blood Cells 3.77 10^6/uL (4.0-5.20); Red Cell Distribution Width 14.2 % (11.8-14.3); White Blood Cell 7.3 10^3/uL (4.4-10.8)
[2022-10-12 06:22] LABS: BUN/Creatinine Ratio 13.5 (10.0-20.0); Calcium 8.9 mg/dL (8.5-10.1); Potassium 3.6 mmol/L (3.5-5.1)
[2022-10-12 09:00] VITALS: BP 155/85
[2022-10-12] MEDS: ENOXAPARIN SOD 40 MG/0.4 ML SYRINGE SC SCH (10:00)
[2022-10-12] MEDS: SODIUM CHLOR 0.9% PF (SALINE LOCK) 10ML VIAL/SYR IV SCH ×2 (11:19→21:22)
[2022-10-12] MEDS: MINERAL OIL 30 ML XX SCH ×2 (11:21→21:23)
[2022-10-12 13:00] VITALS: BP 118/69
[2022-10-12 17:00] VITALS: BP 123/66
[2022-10-12 22:00] VITALS: BP 125/61
[2022-10-13 05:00] VITALS: BP 129/75
[2022-10-13] MEDS: METOCLOPRAMIDE HCL 5MG/ml INJ 2ml VIAL IV SCH ×3 (06:09→21:44)
[2022-10-13 09:00] VITALS: BP 130/73
[2022-10-13] MEDS: ENOXAPARIN SOD 40 MG/0.4 ML SYRINGE SC SCH (10:00)
[2022-10-13] MEDS: MINERAL OIL 30 ML XX SCH ×2 (10:23→21:45)
[2022-10-13] MEDS: SODIUM CHLOR 0.9% PF (SALINE LOCK) 10ML VIAL/SYR IV SCH ×2 (10:23→21:45)
[2022-10-13 13:00] VITALS: BP 128/72
[2022-10-13 16:25] VITALS: BP 136/78
[2022-10-13 22:00] VITALS: BP 125/66
[2022-10-14 05:00] VITALS: BP 127/76
[2022-10-14] MEDS: METOCLOPRAMIDE HCL 5MG/ml INJ 2ml VIAL IV SCH ×3 (06:00→22:00)
[2022-10-14 09:00] VITALS: BP 127/75
[2022-10-14] MEDS: ENOXAPARIN SOD 40 MG/0.4 ML SYRINGE SC SCH ×2 (10:00→10:33)
[2022-10-14] MEDS: SODIUM CHLOR 0.9% PF (SALINE LOCK) 10ML VIAL/SYR IV SCH ×2 (10:35→22:00)
[2022-10-14] MEDS: MINERAL OIL 30 ML XX SCH (10:36)
[2022-10-14 13:00] VITALS: BP 138/79
[2022-10-14 17:08] VITALS: BP 138/75
[2022-10-15] MEDS: MINERAL OIL 30 ML XX SCH ×2 (01:06→10:07)
[2022-10-15] MEDS: METOCLOPRAMIDE HCL 5MG/ml INJ 2ml VIAL IV SCH (04:53)
[2022-10-15 05:00] VITALS: BP 134/76
[2022-10-15 09:00] VITALS: BP 150/81
[2022-10-15] MEDS: SODIUM CHLOR 0.9% PF (SALINE LOCK) 10ML VIAL/SYR IV SCH (10:00)
[2022-10-15] MEDS: ENOXAPARIN SOD 40 MG/0.4 ML SYRINGE SC SCH (10:00)
== END 2022-10-15 12:48 | disposition home or self-care (01) | DRG 388 ==
LOC: ER 13:59 → EDBD 13:59 → OVERFLOW 21:09 → CENTRAL 09-27 12:41 → ICU WEST 09-28 15:53 → TELE-WESTW 10-02 14:55 → WEST WING 10-11 14:59
PROVIDERS: ADMIT Nurse Practitioner; ATTEND Internal Medicine
PROC: 0D9670Z Drainage of Stomach with Drainage Device, Via Natural or Artificial Opening (ICD-10-PCS; principal; 2022-09-27)
PROC: 5A1935Z Respiratory Ventilation, Less than 24 Consecutive Hours (ICD-10-PCS; 2022-09-28)
PROC: 02HV33Z Insertion of Infusion Device into Superior Vena Cava, Percutaneous Approach (ICD-10-PCS; 2022-09-28)
PROC: B548ZZA Ultrasonography of Superior Vena Cava, Guidance (ICD-10-PCS; 2022-09-28)
PROC: 0D9H3ZZ Drainage of Cecum, Percutaneous Approach (ICD-10-PCS; 2022-09-28)
DX: K56.609 Unspecified intestinal obstruction, unspecified as to partial versus complete obstruction (principal); A41.9 Sepsis, unspecified organism; N17.0 Acute kidney failure with tubular necrosis; N39.0 Urinary tract infection, site not specified; K59.39 Other megacolon; K76.9 Liver disease, unspecified; Z66 Do not resuscitate; K80.20 Calculus of gallbladder without cholecystitis without obstruction; E86.0 Dehydration; I95.89 Other hypotension; K63.89 Other specified diseases of intestine
CPT/HCPCS: 36415; 36569; 36600; 71045; 71250; 73100; 74018; 74176; 74250; 76705; 80048; 80053; 80061; 80069; 81001; 82105; 82306; 82805; 82962; 83036; 83735; 84100; 84443; 85025; 85610; 85730; 86850; 86900; 86901; 87045; 87070; 87081; 87086; 87205; 87427; 87493; 93306; 94002; 96365; 96366; 96375; 97110; 97116; 97163; 97530; 99291; C9113; G0378; J0690; J0696; J1100; J1815; J2250; J2543; J3480; J3490; J7042; J7060

== ENCOUNTER 2022-10-28 16:01 | Inpatient (IN) | payer OTHER, MEDICAID ==
[~2022-10-28] VITALS: Ht 157.5 cm; Wt 59.7 kg
[2022-10-28 16:59] LABS: Basophils # (auto) 0 10 ^3/uL (0-0.2); Basophils % (auto) 0.2 % (0.0-2.0); Eosinophils # (auto) 0 10 ^3/uL (0-0.8); Hematocrit 41.2 % (36.0-46.0); Hemoglobin 13.7 g/dL (12.2-16.2); Lymphocytes # (auto) 1.3 10 ^3/uL (0.4-5.4); Lymphocytes % (auto) 15.7 % (10.0-50.0); Mean Corpuscular Hemoglobin 30.3 pg (28.0-32.0); Mean Corpuscular Hgb Conc. 33.2 g/dL (32.0-36.0); Mean Corpuscular Volume 91.2 fL (80.0-100.0); Monocytes # (auto) 0.5 10 ^3/uL (0-1.3); Monocytes % (auto) 6.2 % (0.0-12.0); Neutrophils # (auto) 6.5 10 ^3/uL (1.6-8.6); Neutrophils % (auto) 77.9 % (37.0-80.0); Nucleated Red Blood Cells % 0.1 %; Red Blood Cells 4.52 10^6/uL (4.0-5.20); Red Cell Distribution Width 15.1 % (11.8-14.3); White Blood Cell 8.4 10^3/uL (4.4-10.8)
[2022-10-28 17:16] LABS: Albumin 3.3 g/dL (3.4-5.0); Calcium 8.9 mg/dL (8.5-10.1); Potassium 3.1 mmol/L (3.5-5.1)
[2022-10-28 17:19] LABS: BUN/Creatinine Ratio 21.7 (10.0-20.0); Bilirubin, Total 0.8 mg/dL (0.2-1.0); Total Protein 7.1 g/dL (6.4-8.2)
[2022-10-28] MEDS ORDERED: LACTATED RINGER'S 1,000 ML IV ONE (21:00)
[2022-10-28] MEDS ORDERED: POTASSIUM EFFERVESENT TAB 25 MEQ PO ONE (22:00)
[2022-10-29] MEDS ORDERED: ACETAMINOPHEN 325 MG TAB PO PRN (00:30)
[2022-10-29] MEDS ORDERED: ONDANSETRON HCL 4 MG/2 ML VIAL IV PRN (00:30)
[2022-10-29] MEDS ORDERED: DOCUSATE SOD 100 MG CAP PO PRN (00:30)
[2022-10-29] MEDS ORDERED: HYDROcodone-ACET 5/325MG TAB PO PRN (00:30)
[2022-10-29] MEDS ORDERED: NITROGLYCERIN 0.4 MG SL TAB SL PRN (01:15)
[2022-10-29] MEDS ORDERED: MORPHINE SULFATE INJ 2 MG/ml SYRG IV PRN (01:15)
[2022-10-29 05:35] LABS: Basophils # (auto) 0 10 ^3/uL (0-0.2); Basophils % (auto) 0.2 % (0.0-2.0); Eosinophils # (auto) 0 10 ^3/uL (0-0.8); Eosinophils % (auto) 0.3 % (0.0-7.0); Hematocrit 37.8 % (36.0-46.0); Hemoglobin 12.7 g/dL (12.2-16.2); Lymphocytes # (auto) 1.3 10 ^3/uL (0.4-5.4); Lymphocytes % (auto) 16.2 % (10.0-50.0); Mean Corpuscular Hemoglobin 30.6 pg (28.0-32.0); Mean Corpuscular Hgb Conc. 33.5 g/dL (32.0-36.0); Mean Corpuscular Volume 91.2 fL (80.0-100.0); Monocytes # (auto) 0.5 10 ^3/uL (0-1.3); Monocytes % (auto) 6.6 % (0.0-12.0); Neutrophils # (auto) 6.2 10 ^3/uL (1.6-8.6); Neutrophils % (auto) 76.7 % (37.0-80.0); Nucleated Red Blood Cells % 0.1 %; Red Blood Cells 4.15 10^6/uL (4.0-5.20); Red Cell Distribution Width 15.2 % (11.8-14.3)
[2022-10-29 05:42] LABS: Potassium 3.7 mmol/L (3.5-5.1)
[2022-10-29 05:51] LABS: Albumin 3.1 g/dL (3.4-5.0); BUN/Creatinine Ratio 26.4 (10.0-20.0); Bilirubin, Total 0.8 mg/dL (0.2-1.0); Calcium 8.6 mg/dL (8.5-10.1); Total Protein 6.5 g/dL (6.4-8.2)
[2022-10-29] MEDS ORDERED: SODIUM CHLOR 0.9% PF (SALINE LOCK) 10ML VIAL/SYR IV SCH (06:00)
[2022-10-29 08:07] VITALS: BP 135/74
[2022-10-29 08:15] VITALS: BP 135/74
[2022-10-29] MEDS ORDERED: ERGO1CAP12 PO (09:53)
[2022-10-29 13:00] VITALS: BP 134/72
[2022-10-29] MEDS: SOD CHL 0.9%/ KCL 20MEQ 1,000 ML IV SCH ×2 (13:25→21:54)
[2022-10-29 16:45] VITALS: BP 154/78
[2022-10-29 22:00] VITALS: BP 139/67
[2022-10-30 05:00] VITALS: BP 136/74
[2022-10-30 07:05] LABS: Basophils # (auto) 0 10 ^3/uL (0-0.2); Basophils % (auto) 0.4 % (0.0-2.0); Eosinophils # (auto) 0 10 ^3/uL (0-0.8); Eosinophils % (auto) 0.4 % (0.0-7.0); Hematocrit 33.3 % (36.0-46.0); Hemoglobin 11.1 g/dL (12.2-16.2); Lymphocytes # (auto) 1.2 10 ^3/uL (0.4-5.4); Lymphocytes % (auto) 18.4 % (10.0-50.0); Mean Corpuscular Hemoglobin 30.2 pg (28.0-32.0); Mean Corpuscular Hgb Conc. 33.4 g/dL (32.0-36.0); Mean Corpuscular Volume 90.6 fL (80.0-100.0); Monocytes # (auto) 0.5 10 ^3/uL (0-1.3); Monocytes % (auto) 8.3 % (0.0-12.0); Neutrophils # (auto) 4.6 10 ^3/uL (1.6-8.6); Neutrophils % (auto) 72.5 % (37.0-80.0); Red Blood Cells 3.68 10^6/uL (4.0-5.20); Red Cell Distribution Width 15.4 % (11.8-14.3); White Blood Cell 6.3 10^3/uL (4.4-10.8)
[2022-10-30 07:13] LABS: Albumin 2.7 g/dL (3.4-5.0); Calcium 7.8 mg/dL (8.5-10.1); Potassium 3.4 mmol/L (3.5-5.1)
[2022-10-30 07:16] LABS: BUN/Creatinine Ratio 23.1 (10.0-20.0); Bilirubin, Total 0.5 mg/dL (0.2-1.0); Total Protein 5.5 g/dL (6.4-8.2)
[2022-10-30] MEDS: SOD CHL 0.9%/ KCL 20MEQ 1,000 ML IV SCH ×2 (08:39→16:50)
[2022-10-30 09:05] VITALS: BP 149/97
[2022-10-30] MEDS ORDERED: LOPERAMIDE HCL 2 MG CAP/TAB PO ONE (10:45)
[2022-10-30] MEDS ORDERED: POTASSIUM CHL 20 Meq TABLET PO ONE (11:00)
[2022-10-30 13:00] VITALS: BP 136/76
[2022-10-30 16:46] VITALS: BP 141/75
[2022-10-30] MEDS: LOPERAMIDE HCL 2 MG CAP/TAB PO PRN (16:50)
[2022-10-30 22:00] VITALS: BP 124/76
[2022-10-31 02:18] LABS: Urine Bacteria NONE SEEN /hpf (None Seen); Urine Blood Negative /uL (Negative); Urine Mucus FEW (None Seen); Urine Specific Gravity 1.021 (1.001-1.035); Urine WBC 22 /hpf (0 - 5)
[2022-10-31] MEDS: SOD CHL 0.9%/ KCL 20MEQ 1,000 ML IV SCH ×3 (02:51→22:51)
[2022-10-31 05:00] VITALS: BP 145/80
[2022-10-31 09:00] VITALS: BP 140/73
[2022-10-31] MEDS: FLORASTOR (S. BOULARDII) 250 MG CAP PO SCH (10:00)
[2022-10-31 12:38] VITALS: BP 155/83
[2022-10-31 16:39] VITALS: BP 158/84
[2022-10-31] MEDS: LOPERAMIDE HCL 2 MG CAP/TAB PO PRN (20:55)
[2022-10-31 22:00] VITALS: BP 126/77
[2022-11-01 05:00] VITALS: BP 134/66
[2022-11-01 06:31] LABS: Basophils # (auto) 0 10 ^3/uL (0-0.2); Basophils % (auto) 0.5 % (0.0-2.0); Eosinophils # (auto) 0.2 10 ^3/uL (0-0.8); Eosinophils % (auto) 2.8 % (0.0-7.0); Hematocrit 33.8 % (36.0-46.0); Hemoglobin 11.4 g/dL (12.2-16.2); Lymphocytes # (auto) 1.6 10 ^3/uL (0.4-5.4); Lymphocytes % (auto) 20.2 % (10.0-50.0); Mean Corpuscular Hemoglobin 30.6 pg (28.0-32.0); Mean Corpuscular Hgb Conc. 33.8 g/dL (32.0-36.0); Mean Corpuscular Volume 90.3 fL (80.0-100.0); Monocytes # (auto) 0.6 10 ^3/uL (0-1.3); Neutrophils # (auto) 5.6 10 ^3/uL (1.6-8.6); Neutrophils % (auto) 68.5 % (37.0-80.0); Nucleated Red Blood Cells % 0.1 %; Red Blood Cells 3.74 10^6/uL (4.0-5.20); Red Cell Distribution Width 14.7 % (11.8-14.3); White Blood Cell 8.1 10^3/uL (4.4-10.8)
[2022-11-01 09:36] VITALS: BP 125/78
[2022-11-01] MEDS: FLORASTOR (S. BOULARDII) 250 MG CAP PO SCH (09:48)
[2022-11-01] MEDS: SOD CHL 0.9%/ KCL 20MEQ 1,000 ML IV SCH ×2 (11:02→17:50)
[2022-11-01 13:00] VITALS: BP 135/75
[2022-11-01 16:46] VITALS: BP 140/82
[2022-11-01] MEDS: LOPERAMIDE HCL 2 MG CAP/TAB PO PRN (19:47)
[2022-11-01 21:53] VITALS: BP 132/78
[2022-11-02] MEDS: SOD CHL 0.9%/ KCL 20MEQ 1,000 ML IV SCH (03:50)
[2022-11-02 05:10] VITALS: BP 138/57
[2022-11-02 06:39] LABS: Basophils # (auto) 0 10 ^3/uL (0-0.2); Basophils % (auto) 0.6 % (0.0-2.0); Eosinophils # (auto) 0.2 10 ^3/uL (0-0.8); Eosinophils % (auto) 3.2 % (0.0-7.0); Hematocrit 33.2 % (36.0-46.0); Hemoglobin 11.3 g/dL (12.2-16.2); Lymphocytes # (auto) 1.4 10 ^3/uL (0.4-5.4); Mean Corpuscular Hgb Conc. 34.1 g/dL (32.0-36.0); Monocytes # (auto) 0.5 10 ^3/uL (0-1.3); Monocytes % (auto) 7.3 % (0.0-12.0); Neutrophils # (auto) 4.9 10 ^3/uL (1.6-8.6); Neutrophils % (auto) 68.9 % (37.0-80.0); Nucleated Red Blood Cells % 0.2 %; Red Blood Cells 3.66 10^6/uL (4.0-5.20); Red Cell Distribution Width 15.5 % (11.8-14.3); White Blood Cell 7.1 10^3/uL (4.4-10.8)
[2022-11-02 06:48] LABS: BUN/Creatinine Ratio 13.6 (10.0-20.0); Calcium 8.5 mg/dL (8.5-10.1); Potassium 4.2 mmol/L (3.5-5.1)
[2022-11-02 08:00] VITALS: BP_SYST 122; BP_SYST 143; BP_DIAS 77; BP_DIAS 87
[2022-11-02] MEDS: FLORASTOR (S. BOULARDII) 250 MG CAP PO SCH (09:39)
[2022-11-02] MEDS ORDERED: GASTROGRAFIN 30 ML SOL ONE (10:02)
[2022-11-02 12:00] VITALS: BP 143/87
[2022-11-02] MEDS ORDERED: IOHEXOL 300 MG/ML 100ML BOTTLE IJ ONE (12:23)
[2022-11-02] MEDS ORDERED: CEFTRIAXONE SODIUM 2 GM in D5W 5% 100 ML IV ONE (14:45)
[2022-11-02 16:00] VITALS: BP 121/70
[2022-11-02 22:00] VITALS: BP 138/81
[2022-11-03 05:00] VITALS: BP 140/81
[2022-11-03 05:57] LABS: INR 1.04 (0.9-1.15); Partial Thromboplastin Time 22.4 SEC (24.5-34.5)
[2022-11-03 09:00] VITALS: BP 127/79
[2022-11-03] MEDS ORDERED: fentaNYL CITRATE 100 MCG/2 ML VL ONE (10:06)
[2022-11-03] MEDS ORDERED: MIDAZOLAM HCL 2MG/2ML 2ml VIAL (1mg/ml) ONE (10:06)
[2022-11-03] MEDS ORDERED: MIDAZOLAM HCL 2MG/2ML 2ml VIAL (1mg/ml) IV ONE (10:45)
[2022-11-03] MEDS ORDERED: fentaNYL CITRATE 100 MCG/2 ML VL IV ONE (10:45)
[2022-11-03] MEDS: FLORASTOR (S. BOULARDII) 250 MG CAP PO SCH (10:54)
[2022-11-03 13:00] VITALS: BP_SYST 105; BP_SYST 130; BP_DIAS 66; BP_DIAS 79
[2022-11-03] MEDS ORDERED: APIX5TAB4 PO (15:27)
[2022-11-03 17:00] VITALS: BP 133/81
[2022-11-03 22:00] VITALS: BP 127/72
[2022-11-04 05:00] VITALS: BP 128/73
[2022-11-04 06:30] LABS: Basophils # (auto) 0.1 10 ^3/uL (0-0.2); Basophils % (auto) 0.7 % (0.0-2.0); Eosinophils # (auto) 0.2 10 ^3/uL (0-0.8); Eosinophils % (auto) 2.6 % (0.0-7.0); Hematocrit 35.5 % (36.0-46.0); Hemoglobin 11.8 g/dL (12.2-16.2); Lymphocytes # (auto) 1.5 10 ^3/uL (0.4-5.4); Lymphocytes % (auto) 15.9 % (10.0-50.0); Mean Corpuscular Hemoglobin 30.3 pg (28.0-32.0); Mean Corpuscular Hgb Conc. 33.2 g/dL (32.0-36.0); Mean Corpuscular Volume 91.1 fL (80.0-100.0); Monocytes # (auto) 0.8 10 ^3/uL (0-1.3); Monocytes % (auto) 8.3 % (0.0-12.0); Neutrophils # (auto) 6.6 10 ^3/uL (1.6-8.6); Neutrophils % (auto) 72.5 % (37.0-80.0); Red Blood Cells 3.89 10^6/uL (4.0-5.20); Red Cell Distribution Width 15.4 % (11.8-14.3); White Blood Cell 9.1 10^3/uL (4.4-10.8)
[2022-11-04 07:05] LABS: BUN/Creatinine Ratio 27.3 (10.0-20.0); Calcium 8.7 mg/dL (8.5-10.1); Potassium 4.2 mmol/L (3.5-5.1)
[2022-11-04 08:25] VITALS: BP 119/61
[2022-11-04] MEDS: FLORASTOR (S. BOULARDII) 250 MG CAP PO SCH (10:05)
[2022-11-04 12:35] VITALS: BP 137/75
[2022-11-04 17:00] VITALS: BP 117/67
[2022-11-04 17:34] VITALS: BP 137/75
== END 2022-11-04 18:45 | disposition home or self-care (01) | DRG 391 ==
LOC: ER 16:01 → EDBD 16:01 → TELE 10-29 01:12 → TELE-WESTW 10-29 05:57 → WEST WING 11-02 07:11 → TELE-WESTW 11-02 07:31 → WEST WING 11-02 18:47
PROVIDERS: ADMIT Nurse Practitioner Family; ATTEND Internal Medicine
PROC: 0FB13ZX Excision of Right Lobe Liver, Percutaneous Approach, Diagnostic (ICD-10-PCS; principal; 2022-11-03)
DX: R19.7 Diarrhea, unspecified (principal); I26.99 Other pulmonary embolism without acute cor pulmonale; N39.0 Urinary tract infection, site not specified; R15.9 Full incontinence of feces; E87.6 Hypokalemia; E86.0 Dehydration; Z66 Do not resuscitate; R39.2 Extrarenal uremia; R16.0 Hepatomegaly, not elsewhere classified; R91.8 Other nonspecific abnormal finding of lung field; Z93.3 Colostomy status
CPT/HCPCS: 36415; 71260; 74018; 74176; 74177; 76942; 80048; 80053; 81001; 83605; 83690; 85025; 85610; 85730; 87045; 87081; 87427; 87493; 93005; 96360; G0378; J0696; J2250; J7060